=== PATIENT | male | born 1945 | race Caucasian/White ===

== ENCOUNTER 2020-06-06 07:57 | Inpatient (IN) | payer MEDICARE ==
[~2020-06-06] VITALS: Ht 182.9 cm; Wt 71.7 kg
[2020-06-06 10:09] VITALS: BP 134/72
[2020-06-06] MEDS ORDERED: ERYTHROMYCIN PO (10:22)
[2020-06-06] MEDS ORDERED: PANTOPRAZOLE SO40 MG PO ×2 (10:23→10:56)
[2020-06-06] MEDS ORDERED: CARAFATE S1 GM/10 ML PO (10:23)
[2020-06-06] MEDS ORDERED: ZOVIRAX400 MG PO (10:24)
[2020-06-06] MEDS ORDERED: RT ALBUTEROL CC18 GM IH (10:27)
[2020-06-06] MEDS ORDERED: OMEGA 3 1,0001 EACH PO ×2 (10:33→10:56)
[2020-06-06] MEDS ORDERED: SINGULAIR 110 MG/TAB PO ×2 (10:33→10:54)
[2020-06-06] MEDS ORDERED: FLOMAX0.4 MG PO (10:34)
[2020-06-06] MEDS ORDERED: ROSUVASTATIN CA10 MG PO (10:34)
[2020-06-06] MEDS ORDERED: ALBUTEROL2.5 MG/3 M IH (10:37)
[2020-06-06] MEDS ORDERED: BASAGLAR K100 UNIT/1 (10:38)
[2020-06-06] MEDS ORDERED: CARVEDILOL12.5 MG PO ×2 (10:38→10:44)
[2020-06-06] MEDS ORDERED: FUROSEMIDE40 MG ×3 (10:40→10:45)
[2020-06-06] MEDS ORDERED: ADVAIR DISKUS1 DS2 IH ×2 (10:40→11:15)
[2020-06-06] MEDS ORDERED: BASAGLAR K100 UNIT/1 SQ ×2 (10:42→10:43)
[2020-06-06] MEDS ORDERED: NOVOLOG FLEX100 U/ML SQ ×2 (10:49→10:51)
[2020-06-06] MEDS ORDERED: VICTOZA 3-0.6 MG/0.1 SQ (10:52)
[2020-06-06] MEDS ORDERED: LISINOPRIL40 MG PO (10:53)
[2020-06-06 11:20] VITALS: BP 135/66
--- NOTE | 2020-06-06 12:30 | NUR ---
ANTHONY TAYLOR AT BEDSIDE TO ASSESS PT. PT DENIES ANY NEEDS AT THIS TIME.
[2020-06-06 12:45] VITALS: BP 155/69
[2020-06-06 13:04] LABS: HEMATOCRIT 27.6 % (42.0-52.0); HEMOGLOBIN 8.9 g/dL (13.5-18.0); MEAN CELL VOLUME 92 fl (78-100); MEAN CORPUSCULAR HEMOGLOBIN 30 pg (27-31); MEAN CORPUSCULAR HGB CONC 32 g/dL (33-37); MEAN PLATELET VOLUME 9.1 fl (7.4-10.4); PLATELET COUNT 319 K/mm3 (130-400); RED CELL DISTRIBUTION WIDTH 14.1 % (11.5-14.5); WHITE BLOOD COUNT 7.3 K/mm3 (4.8-10.8)
[2020-06-06 13:16] LABS: ALBUMIN 3.5 g/dL (3.4-4.8)
[2020-06-06 13:17] LABS: POTASSIUM 4.2 mmol/L (3.5-5.1)
[2020-06-06 13:18] LABS: CALCIUM 8.6 mg/dL (8.3-10.5)
[2020-06-06 13:19] LABS: BAND 1 % (0-10); LYMPHOCYTE 10 % (20-51); MONOCYTE 9 % (3-10); NEUTROPHILS 72 % (42-75)
[2020-06-06 13:20] LABS: NUCLEATED RED BLOOD CELL 1 (0-6)
[2020-06-06 13:21] LABS: TOTAL BILIRUBIN 1.5 mg/dL (0.2-1.2)
[2020-06-06 17:59] VITALS: BP 171/72
--- NOTE | 2020-06-06 20:20 | NUR ---
Patient rests in bed awake and alert. Pleasant. HS meds along with tramadol reviewed and given. RT treatment reviewed and given. Anshu and immobilizer CDI RLE. Has 2-3+ edema RLE.
--- NOTE | 2020-06-06 21:15 | NUR ---
Patients accu check [address] notified due to patient to received 38 units of levemier tonight. Orders received to only give 19 units levemir tonight. Patient ate 100% of pudding. Insulin reviewed and given. Patient states pain "good right now". Does good oral care. RLE elevated on 2 pillows.
--- NOTE | 2020-06-07 00:50 | NUR ---
Patient states he's been sleeping well. Denies pain at this time.
--- NOTE | 2020-06-07 02:00 | NUR ---
Patient awake using urinal. Spot check accu check 87 and asked patient if he'd like a snack. Requested chocolate glucerna and given.
--- NOTE | 2020-06-07 05:58 | NUR ---
Patient denies need for pain med at this time and encouraged to take with breakfast prior to therapy. Patient concerned pain meds will cause constipation and colace was given at bedtime.
[2020-06-07 06:14] VITALS: BP 145/74
--- NOTE | 2020-06-07 10:34 | NUR ---
REPORT RECEIVED FROM Quang NEGRO RN
[2020-06-07 17:52] VITALS: BP 154/78
--- NOTE | 2020-06-07 19:19 | NUR ---
report given to jose luis sam
--- NOTE | 2020-06-07 22:00 | NUR ---
Pt was resting in bed watching tv when this nurse entered the room. Pt states that he does not have any pain at this time. Right leg was elevated in the bed on a pillow with ice on the ankle. Pt denies SOB, dyspena, or cough. A&O x4. Pt denies any concerns at this time. Bed in lowest postion, call light within reach. Will continue to monitor.
[2020-06-08 05:37] VITALS: BP 158/65
--- NOTE | 2020-06-08 07:50 | NUR ---
THIS NURSE IN ROOM DOING SHIFT ASSESSMENT. PATIENT ALERT AND ORIENTED X4. PATIENT REPORTS PAIN IN RIGHT LOWER EXT IS "TOLERABLE" 3-09/28. PATIENT STATES "YOU NEED TO LOOK AT THAT FOOT RIGHT ON TOP THERE AND LET ME KNOW WHAT YOU THINK. IT WOKE ME UP OUT OF MY SLEEP THIS MORNING MAN IT SURE WAS ITCHING THIS MORNING IT'S RED" PULLED JANA WRAP ON TOP OF FOOT BACK TO ASSESS TOP OF FOOT FAR ALLOWED WITHOUT DISTURBING WRAP. NOTED THAT PATIENT HAS RED AREA TO TOP OF FOOT THAT IS WARM AND VERY TENDER TO TOUCH. PATIENT'S RIGHT LOWER EXT +2 EDEMA. MORE SWOLLEN TODAY THAN YESTERDAY. PATIENT REPORTS THAT EARLY THIS MORNING WAS THE FIRST HE HAD NOTICED IT. PATIENT'S TIPS OF TOES COLD BUT PATIENT HAS BEEN REPORTING THAT ROOM IS COLD THROUGHOUT NIGHT . CAP REFILL 2-3 SECONDS. PATIENT'S RIGHT LOWER EXT HAS LEG IMMOBILIZER IN PLACE. PATIENT NON WEIGHT BEARING TO RIGHT LOWER EXT. RIGHT LEG ELEVATED ON PILLOWS. PATIENT DENIES ANY SHORTNESS OF BREATH OR DIFFICULTIES BREATHING. PATIENT'S CALL LIGHT WITHIN REACH. BED ALARM ON.
--- NOTE | 2020-06-08 11:05 | NUR ---
tHIS NURSE IN ROOM TO ASSESS REDNESS AND CHECK ON PATIENT. UPON ENTERING NOTED THAT REDNESS HAD VERY SMALL AMOUNT OF EXTENSION PAST MARKING. JANA WRAP PULLED BACK TO FURTHER ASSESS AREA. NOTED THAT AREA THAT WAS PREVIOUSLY MARKED AND RED IS NOW DEEP RED/PURPLE. VERY WARM TO TOUCH AND PAINFUL. PREVIOUSLY REPORTED THAT NURSING WAS INSTRUCTED BY PROVIDER NOT TO TOUCH OR CHANGE DRESSING TO RIGHT LOWER EXT. PATIENT'S RECORD/DISCHARGE PAPERWORK WOUND ORDERS FROM [facility] TO KEEP DRESSING CLEAN AND DRY. ICE TO AREA FOR COMFORT AND DAILY DRESSING CHANGES FOLLOW UP IN 12-14 DAYS. JANA WRAP TO RIGHT LOWER EXT REMOVED TO ASSESS INCISION/REDNESS NOTED THIS MORNING.UNDER JANA WRAP THERE IS CASTING FOAM WITH KERLIX UNDER AND 4X4S COVERING INCISION. SMALL AMOUNT OF DRIED SANGUINEOUS DRAINAGE PRESENT ON OLD 4X4S. PATIENT HAS INCISION WITH TAMARA ON KNEE. INCISION EDGES WELL APPROXIMATED. NO REDNESS OR ACTIVE DRAINAGE. THERE IS SECOND SMALLER INCISION TO LATERAL ASPECT OF CALF. TAMARA INTACT AND EDGES WELL APPROXIMATED. LEG FROM KNEE DOWN IS ALMOST COMPLETELY COVERED IN BRUISING. BRUISING TO TORRES/CALF BLACK/PURPLE WITH SOME YELLOWING. LEG SWOLLEN. PATIENT'S ANKLE VERY SWOLLEN ALONG WITH FOOT. PATIENT HAS DARK PURPLE/BLACK BRUISING TO ANKLE WITH SMALL AMOUNT OF REDNESS AND WARMTH TO ANKLE ESPECIALLY LATERAL ANKLE. TOP OF FOOT DEEP RED/PURPLE.WARM AND VERY PAINFUL. REDNESS OUTLINED. CALLED AND NOTIFIED. IS GOING TO COME LOOK AT LEG WHILE UNWRAPPED. PEDAL PULSES AUDIBLE WITH DOPPLER. IN ROOM. NOT CONCERNED AT THIS TIME FOR INFECTION. PLAN IS TO GET LABS. INCISION CLEANSED WITH STERILE SALINE. 4X4S PLACED OVER INCISION. WRAPPED WITH KERLIX AND COVERED WITH CASTING GAUZE. SECURED WITH JANA WRAP. LEG IMMOBILIZER ON. PATIENT'S LEG ELEVATED ON PILLOWS AND ICE TO ANKLE.
[2020-06-08 14:20] LABS: EOS # 0.4 (0.04-0.40); HEMATOCRIT 28.6 % (42.0-52.0); LYMPH# 0.8 (1.50-4.00); MEAN CELL VOLUME 92 fl (78-100); MEAN CORPUSCULAR HEMOGLOBIN 29 pg (27-31); MEAN CORPUSCULAR HGB CONC 32 g/dL (33-37); MEAN PLATELET VOLUME 9.2 fl (7.4-10.4); MONO # 0.6 (0.20-0.80); NEU # 5.4 (1.40-6.50); PLATELET COUNT 391 K/mm3 (130-400); RED BLOOD COUNT 3.11 M/mm3 (4.20-5.60); RED CELL DISTRIBUTION WIDTH 14.2 % (11.5-14.5); WHITE BLOOD COUNT 7.2 K/mm3 (4.8-10.8)
[2020-06-08 14:25] LABS: POTASSIUM 4.6 mmol/L (3.5-5.1)
[2020-06-08 14:26] LABS: CALCIUM 8.6 mg/dL (8.3-10.5)
[2020-06-08 14:44] LABS: EOS % 5.1 % (0.0-4.0)
[2020-06-08 17:41] VITALS: BP 143/68
[2020-06-09 05:41] VITALS: BP 131/74
--- NOTE | 2020-06-09 08:00 | NUR ---
PATIENT'S SHIFT ASSESSMENT COMPLETE PATIENT REPORTS HAVING A GOOD NIGHT LAST NIGHT. REPORTS PAIN IS 3-4/10 IN RIGHT LOWER EXT. PATIENT'S REDNESS TO RIGHT TOP OF FOOT EXTENDED BEYOND MARKINGS FROM YESTERDAY. PULLED BACK JANA WRAP AND REDNESS IS MORE PROMINANT. AREA MORE WARM AND SWOLLEN TODAY THAN YESTERDAY. RIGHT LOWER EXT ELEVATED ON PILLOW. HAS LEG IMMOBILIZER IN PLACE. PATIENT'S WEIGHT UP THIS MORNING FROM YESTERDAY. PATIENT HAS INCREASED SWELLING. ASKED PATIENT IF HE WAS HAVING ANY SHORTNESS OF BREATH STATES "YOU KNOW I DID FOR THE FIRST TIME THIS MORNING" PATIENT HAS PRN LASIX ORDERED. ASKED PATIENT WHAT HIS USUAL ROUTINE IS AT HOME FOR LASIX. PATIENT REPORTS THAT USUALLY HIS GIVES HIM 80MG EVERY OTHER DAY IN THE MORNIGN AND TAKES 40MG ON THE OTHER DAYS. WILL GIVE PATIENT PRN LASIX DOSE WITH [facility]. NOTIFIED OF PATIENT'S REDNESS. REPORTS HE WILL COME LOOK AT LEG WHEN ABLE. WAITING FOR TO BE AVAILABLE TO ASSESS LEG WITHOUT DRESSING ON.
--- NOTE | 2020-06-09 14:30 | NUR ---
PATIENT'S JANA WRAP AND DRESSINGS REMOVED AT THIS TIME. PATIENT'S OVERALL BRUSING AND SWELLING TO CALF AND TORRES IMPROVED. MORE SWELLING TODAY TO ANKEL AND FOOT. ANKLE AND FOOT MORE RED AND WARM. LATERAL ASPECT OF ANKLE BRIGHT RED AND WARM.VERY PAINFUL TO TOUCH. PATIENT STATES "MAN IT IS JUST ON FIRE" REDNESS EXTENDS ALL THE WAY DOWN FOOT AND ONTO TOP OF FOOT. IN TO SEE LEG. NO NEW ORDERS AT THIS TIME. STATES THAT PATIENT SHOULD SEE ORTHO SCHEDULE ON WEDNESDAY. ICE TO ANKLE AFTER DRESSING CHANGE AND ELEVATED ON PILLOW.
[2020-06-09 17:20] VITALS: BP 147/77
--- NOTE | 2020-06-09 20:00 | NUR ---
Pt resting in bed when entering room. Pt denies pain at this time requesting Tramadol 50mg and colace at HS. Rt lower extremity wrapped with mu, toes are warm and nonpainful to touch. Pt has no concerns at this time.
[2020-06-10 05:23] VITALS: BP 128/69
--- NOTE | 2020-06-10 07:15 | NUR ---
Report received from VU Davis.
--- NOTE | 2020-06-10 08:45 | NUR ---
Provider in to see pt. She assessed increased redness and bruising to R. LE. New orders recevied. Pt's leg to be elevated and ice applied TID.
--- NOTE | 2020-06-10 11:45 | NUR ---
Pt reporting pain to his RMaulik YUAN. Describes it as a 6-12/28. Offered PRN pain medication. Pt declined stating that his is waiting for his bowels to move. States that he was started on gabapentin and is hoping that will help soon. Reminded him that it may take a little while for him to notice improvement from the gabapentin. Pt verbalized understanding but continued to decline PRN pain medication at this time. Encouraged pt to contact nurse for PRN pain medication if he changes his mind or as needed.
--- NOTE | 2020-06-10 12:03 | NUR ---
Called [facility] in [place] ([phone]). Spoke with Shell. She confrimed that pt is scheduled to see Alfred Verma tomorrow, 06/11 @ 10:10. Asked if appointment could be postponed and if our providers could remove mary kate. Shell stated she would speak with the nurse and have someone call nurse's station back.
--- NOTE | 2020-06-10 12:14 | NUR ---
Pt's FSBS this AM was 71 and then 82 prior to lunch. Discussed with ANTHONY Pérez. New orders received and noted in paper chart.
--- NOTE | 2020-06-10 12:28 | NUR ---
In discussing parameters added to insulin. Pt states that he was able to sit up at edge of bed while eating lunch with legs dangling at side and stated that it helped relieve his R. LE "burning". Pt now rating pain 08/28. Continues ot decline need for PRN pain med at this time.
--- NOTE | 2020-06-10 15:20 | NUR ---
Pt reports that pain is increased after PRN Ultram. Pt states that he continues to have a "burning" pain on the top of his foot and "stabbing" pain that "shoots" through his foot. Additionl 50mg or PRN Ultram given per order. Will discuss with provider.
--- NOTE | 2020-06-10 15:33 | NUR ---
Received call back from VU Downey at [facility]. Appointment cancelled for tomorrow and rescheduled for 06/25/20 @ 11:00. Sutures may be removed on 06/12. They would like a AP and Lateral Rxay of R. tibia. Please faxed xray reports and recent labs to [phone]. Pt and provider updated.
--- NOTE | 2020-06-10 16:00 | NUR ---
Discussed pt's pain and f/u appointments with ANTHONY Pérez. Requested that pt's dressing and immobilizer be removed and complete neurovascular assessment be completed. PRN lidocaine patch ordered for persistent pain. JANA bandage removed. Pt with good pedal pulses. 1+ pitting edema to R. LE. Brisk cap refill. Pt able to wiggle toes. Cast padding and JANA bandage reapplied. Immobilizer repostioned and reapplied. Pt reported immediate decrease in pain with interventions. Denies need for lidocaine patch at this time.
[2020-06-10 17:29] VITALS: BP 126/51
--- NOTE | 2020-06-10 18:59 | NUR ---
Report given to LILIANE Ramos.
--- NOTE | 2020-06-10 19:10 | NUR ---
Report received from Kathrin WOMACK. Resting supine in bed with RLE elevated on pillow. Anshu wrap dressing and immobilizer in place Rates pain currently 2/10. Assessment completed. Denies wants or needs at this time. Bed alarm on. Call light in reach.
--- NOTE | 2020-06-11 01:27 | NUR ---
Rang call light to request a blanket. Emptied 800 ML of clear yellow urine from urinal. Patient states he has been "sleeping the best tonight so far". Denies pain.
--- NOTE | 2020-06-11 02:10 | NUR ---
Calls now and requests pain pill. states he "wants to keep ahead of the pain". Rates 09/28. Tramadol 50 MG taken at this time.
[2020-06-11 04:35] VITALS: BP 147/72
[2020-06-11 05:47] LABS: BASO # 0.1 (0.02-0.10); EOS # 0.5 (0.04-0.40); HEMOGLOBIN 9.6 g/dL (13.5-18.0); LYMPH# 1.3 (1.50-4.00); MEAN CELL VOLUME 92 fl (78-100); MEAN CORPUSCULAR HEMOGLOBIN 30 pg (27-31); MEAN CORPUSCULAR HGB CONC 32 g/dL (33-37); MEAN PLATELET VOLUME 9.3 fl (7.4-10.4); MONO # 0.7 (0.20-0.80); NEU # 5.2 (1.40-6.50); PLATELET COUNT 381 K/mm3 (130-400); RED BLOOD COUNT 3.25 M/mm3 (4.20-5.60); RED CELL DISTRIBUTION WIDTH 14.2 % (11.5-14.5); WHITE BLOOD COUNT 7.7 K/mm3 (4.8-10.8)
[2020-06-11 05:48] LABS: EOS % 6.1 % (0.0-4.0)
[2020-06-11 06:00] LABS: ALBUMIN 3.4 g/dL (3.4-4.8)
[2020-06-11 06:01] LABS: POTASSIUM 4.3 mmol/L (3.5-5.1)
[2020-06-11 06:02] LABS: CALCIUM 8.8 mg/dL (8.3-10.5)
[2020-06-11 06:03] LABS: TOTAL PROTEIN 5.9 g/dL (6.2-8.1)
--- NOTE | 2020-06-11 07:04 | NUR ---
Report to Renata WOMACK.
--- NOTE | 2020-06-11 15:36 | NUR ---
Spoke with Pt about his expectations of going home before devonte. He states that he will be okay to stay for as long as therapy feels is good for his recovery. Spoke with Eva his . She states understanding [facility] [employer] [facility] and our next review date is 06/18/20. With anticipated d/c of 06/22/20. That is also with approx 9 hours of therapy a week per [facility]. Gave PT/OT therapy logs from [facility]. Anticipated the return of the log to [facility] for next week 06/17/20. asked about when her would return to Plavix and asprin. Spoke with Charis and she advised he would not be starting those at this admission. He will likely need to speak with his PCP before starting again.
--- NOTE | 2020-06-11 17:01 | NUR ---
PATIENT SITTING IN CHAIR READY TO EAT. PATIENT IS TALKATIVE AND APPEARS TO BE RELAXED AND NO COMPLAINTS OF PAIN TODAY. PATIENT REPORTS THAT HE IS GOOD WITH HIS RIGHT LEG AND WILLING TO STAY TO WORK WITH THERAPY TO GET SOME MORE STRENGTH.
[2020-06-11 17:05] VITALS: BP 124/63
--- NOTE | 2020-06-11 18:43 | NUR ---
REPORT GIVEN TO LILIANE LAMA
--- NOTE | 2020-06-11 19:34 | NUR ---
Report received from Renata WOMACK. Patient resting supine in bed watching TV. A/O x4. Denies pain or need for analgesic at this time. Dressing to RLE CDI with leg elevated on pillows. Assessment completed. Denies wants or needs at this time.
--- NOTE | 2020-06-12 01:11 | NUR ---
Resting well. Has not requested any pain medication this shift. Reports relief of gas/bloating after medication given.
--- NOTE | 2020-06-12 01:31 | NUR ---
Report to Palmira WOMACK.
--- NOTE | 2020-06-12 01:57 | NUR ---
Patient up to the bathroom CGA with walker and hops on LLE. Voids and passes gas but no bm. Able to lift legs into bed and BLE elevated on pillow. Denies pain.
--- NOTE | 2020-06-12 05:00 | NUR ---
Awakened for meds and vitals. Denies pain or needs.
[2020-06-12 05:53] VITALS: BP 117/60
--- NOTE | 2020-06-12 07:00 | NUR ---
Report received from VU Chavis.
--- NOTE | 2020-06-12 09:12 | NUR ---
Spoke with Eva today. She found DME's in there network. 1st choice is [employer] [phone] 2nd choice is [employer] [phone] [facility] [phone] [facility] [phone] [facility] [phone] She prefers a DME company that would deliver.
--- NOTE | 2020-06-12 09:49 | NUR ---
PT AND OT IN WITH PATIENT AT THIS TIME.
--- NOTE | 2020-06-12 09:50 | NUR ---
PT AND OT NOW OUT OF ROOM. PATIENT RESTING IN CHAIR
--- NOTE | 2020-06-12 09:59 | NUR ---
PT AND OT BACK WITH PATIENT WITH WHEELCHAIR EXCHANGING.
--- NOTE | 2020-06-12 10:25 | NUR ---
BACK TO ROOM FROM THERAPY; NURSING AND XRAY IN ROOM.
--- NOTE | 2020-06-12 10:45 | NUR ---
Hutchinson removed from R. knee incision. Edges well approximated. 50 mary kate removed. Pt tolerated procedure well. R. leg wrapped in gauze and JANA wrap and immobilizer replaced.
--- NOTE | 2020-06-12 14:30 | NUR ---
Pt with persistent pain even after PRN pain meds given. Immoblizer removed and JANA wrap removed. Pt reported instant pain relief. Pt requested to have immobilizer off for a little to see if that helps with pain.
--- NOTE | 2020-06-12 15:12 | NUR ---
Xray report and recent labs faxed to [facility]. . Xray results read by ANTHONY Lima. She would like to know Ortho's take on results as they have the comparison films. Attempted to call and speak with Dr. Reddy' nurse. Message left requesting return call.
[2020-06-12 18:01] VITALS: BP 132/61
[2020-06-13 06:11] VITALS: BP 164/71
--- NOTE | 2020-06-13 10:36 | NUR ---
CALL FROM ADRIANNA Evans WITH REGARDING RECENT XRAY REPORT, ADRIANNA STATES THE "FIBULA FX IS NOT NEW, THEY SAW IT BUT DID NOT REPAIR DURING SURGERY. EVERYTHING LOOKS ALIGNED AND GREAT. NO NEW CONCERNS. CONTINUE UPPER EXTREMITY CONDITIONING, INCISION CARE, AND PT WILL CONTINUE TO BE NON WEIGHT BEARING UNTIL AT LEAST HIS FOLLOW UP APPOINTMENT ON 06/25/20." EMANUEL CRUZ NOTIFIED OF PHONE CALL, NO NEW ORDERS AT THIS TIME
--- NOTE | 2020-06-13 12:39 | NUR ---
PT UP IN CHAIR EATING LUNCH, DENIES PAIN, DENIES NEED FOR PRN PAIN CONTROL, SMILING AFFECT, SELF ADMINISTERING REQUIRED INSULIN AND STATES "I'VE BEEN DOING IT MYSELF FOR 20+ YEARS, WHY NOT CONTINUE"
[2020-06-13 17:15] VITALS: BP 136/64
--- NOTE | 2020-06-13 19:00 | NUR ---
Report received from Kizzy WOMACK.
--- NOTE | 2020-06-13 20:00 | NUR ---
Patient rests in bed watching TV. Denies pain at this time. HS meds along with insulin reviewed and given. Reports he's belching alot and offered gaviscon and given. RT treatment given. Alert and oriented X 4. RLE elevated on pillow and immobilizer in place.
--- NOTE | 2020-06-13 22:13 | NUR ---
Rests awake in bed watching TV. Denies pain or needs.
--- NOTE | 2020-06-14 00:23 | NUR ---
PATIENT REMAINS AWAKE AND COMPLAINTS OF TOP OF RIGHT FOOT BURNING. WRAP AND JANA LOOSENED AND HELPED. TRAMADOL GIVEN FOR PAIN 11/28.
--- NOTE | 2020-06-14 01:30 | NUR ---
Patient rests with eyes closed. Respirations with ease.
[2020-06-14 05:29] VITALS: BP 126/68
--- NOTE | 2020-06-14 05:30 | NUR ---
Patient reports pain med helped for pain and sleep and gaviscon helped for gas.
--- NOTE | 2020-06-14 09:20 | NUR ---
Pt ambulated to BR using straight walker w/ NWB on right leg and nurse CGA. Pt tolerates well - steady overall. Has large stool. AMbulates to sink and then transfers to w/c for am cares at the sink. Encouraged pt to return to recliner but declines as states it's not very comfortable. Will look for other options. Bed alarms on and call light in reach. Denies further needs.
[2020-06-14 17:08] VITALS: BP 121/62
--- NOTE | 2020-06-15 01:00 | NUR ---
Report received from Bruna WOMACK.
[2020-06-15 05:56] VITALS: BP 135/53
--- NOTE | 2020-06-15 05:57 | NUR ---
Patient resting soundly with eyes closed. Awakened for med. States best sleep he has had. Denies needs.
[2020-06-15 18:14] VITALS: BP 132/67
--- NOTE | 2020-06-15 18:18 | NUR ---
PT DENIES NEED FOR PAIN MEDICINE THROUGHOUT SHIFT, SMILING AFFECT AND PLEASANT SPIRITS THROUGHOUT DAY, MENTIONS HIS APPRECIATION FOR THE CARES HE RECEIVING MULTIPLE TIMES, FULLY ALERT AND ORIENTED, NO ACUTE CHANGES, IN BED RESTING FOLLOWING SUPPER, DENIES NEEDS, CALL LIGHT WITHIN REACH AND BED ALARM ON AT THIS TIME
--- NOTE | 2020-06-15 19:24 | NUR ---
Report received from Kizzy WOMACK. Rests supine in bed watching TV. A/O x4. Denies pain to RLE. Brace and JANA wrap CDI with leg elevated on pillows. States has some "gas on stomach after supper". Gas X taken at this time. Assessement completed. Denies further wants or needs. Bed alarm on. Call light in reach.
--- NOTE | 2020-06-16 05:21 | NUR ---
AM medication taken. States he "didn't sleep at all last night". Denies it is pain related. States " I think I am just amped up about going home soon".
[2020-06-16 05:39] VITALS: BP 122/66
--- NOTE | 2020-06-16 07:10 | NUR ---
Report to Vernoica WOMACK.
--- NOTE | 2020-06-16 09:50 | NUR ---
Dejuan resting comfortably in bed this morning when RN went in to perform assessment and give morning meds. No complaints of pain this morning, but he did say he was unable to sleep last night. This RN questioned if it was due to pain or discomfort, and Dejuan denied any issues, just stating he could not sleep. He took his morning meds without complication, and was able to self-administer insulin in the abdomen. L leg was assessed, but incision covered by immobilizing brace and mu wrap. Toes warm and pink, with cap refil <3 sec. Dejuan is not reporting any pain, and refused applying ice to L Leg. He denied needing pain medication. Dejuan is currently napping and denies any pain or discomfort. No concerns presented to the care team at this time. Call light within reach, bed alarm on, and L leg elevated on pillow.
--- NOTE | 2020-06-16 12:48 | NUR ---
Dejuan sat up in bed with legs dangling for lunch today. His BG prior to lunch was 160, so 2 units sliding scale insulin was administered with 22 units novolog 1200 dose. He was alert and oriented x4, and was able to self administer insulin. He did not report any pain at this time, even with position change. No complaints or concerns presented to the care team at this time. Call light within reach and bed alarm on at this time.
--- NOTE | 2020-06-16 13:18 | NUR ---
Dejuan requested assistance up to bathroom. He used the 4 point walker and hopped on his unaffected leg with gait belt and 2 person assist to toilet without assistance. No complaints of pain or discomfort at this time. On toilet with call harvey within reach.
[2020-06-16 17:26] VITALS: BP 132/66
--- NOTE | 2020-06-16 17:30 | NUR ---
Pt aware of BG 95 and was requesting insulin at this time.
--- NOTE | 2020-06-16 18:32 | NUR ---
Dejuan resting in bed at this time after dinner. Evening insulin given, and he was alert and oriented and able to self administer. No complaints of pain at this time. Pt refused ice applied to affected leg, but has it elevated on pillows at this time. No complaints or concerns presented to care team at this time. Call light within reach and bed alarm on.
--- NOTE | 2020-06-16 18:58 | NUR ---
Report given to Palmira WOMACK
--- NOTE | 2020-06-16 19:00 | NUR ---
Report received from Veronica WOMACK.
--- NOTE | 2020-06-16 21:10 | NUR ---
Patient rests in bed watching TV. Alert and oriented x 4. Pleasant and jokes with staff. Denies pain. HS meds all reviewed and given. Patient requests sleep aid for he didn't sleep last night and states he has taken melatonin in the past. Dr. Gallegos notified and new order received. Melatonin 6mg given.
--- NOTE | 2020-06-16 23:05 | NUR ---
Rests quietly in bed. Respirations with ease.
--- NOTE | 2020-06-17 02:30 | NUR ---
Patient rests with eyes closed.
--- NOTE | 2020-06-17 05:10 | NUR ---
Patient states he feels sleep aid helped. Slept real good for 3 hours and dozed off and on until that fan came on. Denies pain or needs.
[2020-06-17 05:47] VITALS: BP 109/58
--- NOTE | 2020-06-17 15:15 | NUR ---
PT REQUESTING TO VISIT WITH PROVIDER TO DISCUSS WHEN HE IS TO "START HIS PLAVIX BACK UP," DEANGELO CRUZ NOTIFIED
[2020-06-17 17:16] VITALS: BP 139/68
--- NOTE | 2020-06-17 18:11 | NUR ---
PT MENTIONS THIS EVENING THAT HIS AND HIM AND DISCUSSED PLAN OF CARE WITH THERAPY AND CASE MANAGEMENT AND HE "HAS HIS FINGERS CROSSED" THAT HE GETS TO DC HOME TOMORROW, THIS NURSE EDUCATES PT THAT SHE HAS NOT HEARD OF ANY PLANS YET AT THIS TIME FOR A DC BUT WILL REQUEST INFORMATION FROM THE PROVIDER, PT IN JOYFUL SPRIRITS, DENIES PAIN, DENIES NEEDS, BED ALARM ON AND CALL LIGHT WITHIN REACH AT THIS TIME
[2020-06-18 03:19] VITALS: BP 134/91
--- NOTE | 2020-06-18 05:04 | NUR ---
Patient states "no not really" to getting sleep this NOC.
[2020-06-18 05:23] LABS: EOS # 0.3 (0.04-0.40); EOS % 4.3 % (0.0-4.0); HEMATOCRIT 31.9 % (42.0-52.0); MEAN CELL VOLUME 91 fl (78-100); MEAN CORPUSCULAR HEMOGLOBIN 29 pg (27-31); MEAN CORPUSCULAR HGB CONC 31 g/dL (33-37); MONO # 0.6 (0.20-0.80); NEU # 4.2 (1.40-6.50); PLATELET COUNT 305 K/mm3 (130-400); RED BLOOD COUNT 3.51 M/mm3 (4.20-5.60); RED CELL DISTRIBUTION WIDTH 14.2 % (11.5-14.5); WHITE BLOOD COUNT 6.1 K/mm3 (4.8-10.8)
[2020-06-18 05:36] LABS: ALBUMIN 3.4 g/dL (3.4-4.8)
[2020-06-18 05:37] LABS: POTASSIUM 4.3 mmol/L (3.5-5.1)
[2020-06-18 05:38] LABS: CALCIUM 8.6 mg/dL (8.3-10.5)
[2020-06-18 05:39] LABS: TOTAL PROTEIN 5.1 g/dL (6.2-8.1)
[2020-06-18 05:41] LABS: TOTAL BILIRUBIN 0.7 mg/dL (0.2-1.2)
[2020-06-18 06:07] VITALS: BP 121/64
--- NOTE | 2020-06-18 07:20 | NUR ---
REPORT RECEIVED FROM VU LUEVANO
[2020-06-18] MEDS ORDERED: GABAPENTIN100 MG PO (08:27)
[2020-06-18] MEDS ORDERED: TRAMADOL 50 MG TAB PO (08:29)
[2020-06-18] MEDS ORDERED: DOCUSATE SOD100 MG PO (08:30)
[2020-06-18] MEDS ORDERED: SIMETHICONE80 M1 PO (08:30)
[2020-06-18] MEDS ORDERED: ACID GONE EXTRA1 CTB PO (08:30)
[2020-06-18] MEDS ORDERED: HEALTHYLAX17 GM/Dose PO (08:31)
[2020-06-18] MEDS ORDERED: MELATIN 3 MG-11 TAB PO (08:32)
--- NOTE | 2020-06-18 14:00 | NUR ---
PATIENT'S INSTRUCTIONS FROM [facility] TO RECHECK CBC AND IF NO SIGNS OF BLEEDING RESTART PATIENT'S PLAVIX AND ASPIRIN 7 DAYS AFTER ADMISSION TO [facility]. ASKED ANTHONY TAYLOR ABOUT RESTARTING PLAVIX/ASPIRIN. PROVIDER REPORTS THAT IT IS UP TO PRIMARY CARE PROVIDER TO RESTART AND THEY WILL HAVE TO ADDRESS THAT WITH PCP. INSTRUCTED PATIENT SEVERAL TIMES TO FOLLOW UP WITH PCP ON PLAVIX AND ASPIRIN. PATIENT VERBALIZES UNDERSTANDING.
--- NOTE | 2020-06-18 14:20 | NUR ---
PATIENT AND PATIENT'S PROVIDED DISCHARGE INSTRUCTIONS AT THIS TIME.
[2020-06-18] MEDS ORDERED: ERY PO (14:22)
[2020-06-18] MEDS ORDERED: CARAFATE 1GM1 G PO (14:22)
--- NOTE | 2020-06-18 14:26 | NUR ---
PATIENT LEFT FACILITY VIA WHEELCHARI TO [facility] AT THIS TIME. PATIENT'S PERSONAL BELONGINGS AND DISHCARGE PAPERWORK SENT WITH PATIENT'S .
--- NOTE | 2020-06-18 15:30 | NUR ---
PATIENT LEFT 1 SHOE AND CELL PHONE [facility] DEPUTY OR CALENDAR CLERK IN ROOM. PATIENT CALLED AND NOTIFIED. IS GOING TO TRY TO PICK THEM UP TOMORROW OR THE FOLLOWING DAY. WILL PUT BELONGINGS IN MED ROOM.
== END 2020-06-18 14:26 | disposition home health service (06) | DRG 561 ==
LOC: MED/SURG 07:57
PROVIDERS: Family Medicine; Physician Assistant; ADMIT Internal Medicine
DX: S82.101D Unspecified fracture of upper end of right tibia, subsequent encounter for closed fracture with routine healing (principal); I12.9 Hypertensive chronic kidney disease with stage 1 through stage 4 chronic kidney disease, or unspecified chronic kidney disease; E11.22 Type 2 diabetes mellitus with diabetic chronic kidney disease; N18.30 Chronic kidney disease, stage 3 unspecified; K22.70 Barrett's esophagus without dysplasia; I25.10 Atherosclerotic heart disease of native coronary artery without angina pectoris; D63.1 Anemia in chronic kidney disease; E78.00 Pure hypercholesterolemia, unspecified; R53.81 Other malaise; E78.5 Hyperlipidemia, unspecified; W19.XXXD Unspecified fall, subsequent encounter; Z79.4 Long term (current) use of insulin; Z96.653 Presence of artificial knee joint, bilateral; Z86.19 Personal history of other infectious and parasitic diseases; Z86.73 Personal history of transient ischemic attack (TIA), and cerebral infarction without residual deficits; Z88.6 Allergy status to analgesic agent; Z88.5 Allergy status to narcotic agent
CPT/HCPCS: J1815